=== PATIENT | female | born 1960 | race Caucasian/White ===

== ENCOUNTER 2020-08-14 14:31 | Emergency (ER) | payer OTHER ==
[~2020-08-14] VITALS: Ht 157.5 cm; Wt 59.1 kg
[2020-08-14 16:15] LABS: APPEARANCE,URINE CLEAR (CLEAR); BILIRUBIN,URINE NEGATIVE (NEGATIVE); GLUCOSE, URINE (UA) NEGATIVE (NEGATIVE); KETONES,URINE NEGATIVE (NEGATIVE); LEUKOCYTE ESTERASE ,URINE TRACE (NEGATIVE); NITRATE,URINE NEGATIVE (NEGATIVE); OCCULT BLOOD,URINE LARGE (NEGATIVE); PROTEIN,URINE NEGATIVE (NEGATIVE); UROBILINOGEN,URINE 0.2 mg/dL (<=1.0)
[2020-08-14 16:18] LABS: BACTERIA,URINE Rare /HPF (None Seen); SQUAMOUS EPITHELIAL CELL,UR Few /LPF (None Seen)
[2020-08-14 16:27] LABS: BASOPHILS % (AUTO) 0.9 % (0.0-2.0); HEMATOCRIT 32.2 % (36-46); HEMOGLOBIN 10.8 g/dL (12.0-16.0); LYMPHOCYTES # (AUTO) 1.8 K/uL (1.0-4.8); LYMPHOCYTES % (AUTO) 38.8 % (22.0-44.0); MEAN CORPUSCULAR HEMOGLOBIN 32.2 pg (26.0-34.0); MEAN CORPUSCULAR HGB CONC 33.6 G/dL (31.0-37.0); MEAN CORPUSCULAR VOLUME 96 fL (80-100); MONOCYTES # (AUTO) 0.5 K/uL (0.1-1.0); NEUTROPHILS # (AUTO) 2.2 K/uL (1.8-7.7); NEUTROPHILS % (AUTO) 47.3 % (40.0-70.0); PLATELET COUNT (AUTO) 242 K/uL (150-450); RED BLOOD CELL COUNT(AUTO) 3.36 MIL/uL (4.00-5.20); RED CELL DISTRIBUTION WIDTH 13.3 % (11.5-14.5)
[2020-08-14 16:38] LABS: ANION GAP 9 mmol/L (8-16); CALCIUM, TOTAL 8.6 mg/dL (8.8-10.5); CARBON DIOXIDE 28 mmol/L (22-29); CHLORIDE 105 mmol/L (98-107); CREATININE 0.47 mg/dL (0.60-1.30); GLOMERULAR FILTR. RATE CALC > 60 mL/min (>60); GLUCOSE,RANDOM 96 mg/dL (70-110); POTASSIUM 4.3 mmol/L (3.5-5.1); SODIUM SERUM 142 mmol/L (136-145); UREA NITROGEN, BLOOD 15 mg/dL (7-18)
[2020-08-14 17:05] LABS: ALANINE AMINOTRANSFERASE 22 U/L (12-78); ALBUMIN 3.7 g/dL (3.4-5.0); ALKALINE PHOSPHATASE 64 U/L (46-116); ASPARTATE AMINOTRANSFERASE 12 U/L (15-37); BILIRUBIN,TOTAL 0.2 mg/dL (0.1-1.0); CREATINE KINASE, TOTAL ONLY 79 U/L (26-192); TOTAL PROTEIN, SERUM 7.2 g/dL (6.4-8.2)
[2020-08-14 18:07] VITALS: BP 126/68
== END 2020-08-14 18:09 | disposition home or self-care (01) ==
LOC: EMS 14:31
DX: R20.0 Anesthesia of skin (principal); M79.601 Pain in right arm; M79.602 Pain in left arm; M79.604 Pain in right leg; M79.605 Pain in left leg
CPT/HCPCS: 71045; 80053; 81001; 82550; 84484; 85025; 93005; 99285; 36415-L1; 36415-TC

== ENCOUNTER 2021-02-20 14:22 | Emergency (ER) | payer OTHER ==
[~2021-02-20] VITALS: Ht 165.1 cm; Wt 53.2 kg
[2021-02-20] MEDS ORDERED: ACETAMINOPHEN 325 MG TABLET PO ONE (18:15)
[2021-02-20 18:23] LABS: BASOPHILS % (AUTO) 0.9 % (0.0-2.0); EOSINOPHILS % (AUTO) 2.6 % (1.0-6.0); HEMATOCRIT 33.3 % (36-46); HEMOGLOBIN 11.1 g/dL (12.0-16.0); LYMPHOCYTES % (AUTO) 37.5 % (22.0-44.0); MEAN CORPUSCULAR HEMOGLOBIN 31.9 pg (26.0-34.0); MEAN CORPUSCULAR HGB CONC 33.4 G/dL (31.0-37.0); MEAN CORPUSCULAR VOLUME 95 fL (80-100); MONOCYTES # (AUTO) 0.6 K/uL (0.1-1.0); NEUTROPHILS # (AUTO) 2.5 K/uL (1.8-7.7); PLATELET COUNT (AUTO) 249 K/uL (150-450); RED BLOOD CELL COUNT(AUTO) 3.49 MIL/uL (4.00-5.20); RED CELL DISTRIBUTION WIDTH 14.4 % (11.5-14.5)
[2021-02-20 18:33] LABS: ANION GAP 9 mmol/L (8-16); CALCIUM, TOTAL 8.8 mg/dL (8.8-10.5); CARBON DIOXIDE 28 mmol/L (22-29); CHLORIDE 106 mmol/L (98-107); CREATININE 0.55 mg/dL (0.60-1.30); GLOMERULAR FILTR. RATE CALC > 60 mL/min (>60); GLUCOSE,RANDOM 101 mg/dL (70-110); POTASSIUM 3.9 mmol/L (3.5-5.1); SODIUM SERUM 143 mmol/L (136-145); UREA NITROGEN, BLOOD 22 mg/dL (7-18)
[2021-02-20 18:58] LABS: ALANINE AMINOTRANSFERASE 28 U/L (12-78); ALBUMIN 3.8 g/dL (3.4-5.0); ALKALINE PHOSPHATASE 65 U/L (46-116); ASPARTATE AMINOTRANSFERASE 21 U/L (15-37); BILIRUBIN,TOTAL 0.3 mg/dL (0.1-1.0); CREATINE KINASE, TOTAL ONLY 100 U/L (26-192); TOTAL PROTEIN, SERUM 7.4 g/dL (6.4-8.2)
[2021-02-20 19:14] LABS: APPEARANCE,URINE CLEAR (CLEAR); BILIRUBIN,URINE NEGATIVE (NEGATIVE); GLUCOSE, URINE (UA) NEGATIVE (NEGATIVE); KETONES,URINE NEGATIVE (NEGATIVE); LEUKOCYTE ESTERASE ,URINE SMALL (NEGATIVE); NITRATE,URINE NEGATIVE (NEGATIVE); OCCULT BLOOD,URINE LARGE (NEGATIVE); PH,URINE 6.5 (5.0-8.0); PROTEIN,URINE TRACE (NEGATIVE); UROBILINOGEN,URINE 0.2 mg/dL (<=1.0)
[2021-02-20 19:20] LABS: RBC,URINE 51-100 /HPF (0-2)
[2021-02-20 19:22] LABS: BACTERIA,URINE Few /HPF (None Seen); SQUAMOUS EPITHELIAL CELL,UR Few /LPF (None Seen)
[2021-02-20 19:55] VITALS: BP 118/71
== END 2021-02-20 19:30 | disposition home or self-care (01) ==
LOC: EMS 14:26
DX: G47.00 Insomnia, unspecified (principal); R31.9 Hematuria, unspecified
CPT/HCPCS: 71045; 80053; 81001; 82550; 85025; 99284; 36415-L1; 36415-TC

== ENCOUNTER 2021-10-10 07:44 | Inpatient (IN) | payer OTHER ==
[2021-10-10] VITALS (16 sets, daily range): BP systolic 110–134; BP diastolic 64–80
[~2021-10-10] VITALS: Ht 160 cm; Wt 55.9 kg
[2021-10-10] MEDS ORDERED: NITROGLYCERIN 0.4 MG SUBLINGUAL TABLET #25 SL ONE (08:00)
[2021-10-10] MEDS ORDERED: ASPIRIN 81 MG CHEWABLE TABLET PO ONE (08:00)
[2021-10-10 08:05] LABS: BASOPHILS % (AUTO) 0.5 % (0.0-2.0); HEMATOCRIT 37.5 % (36-46); HEMOGLOBIN 13.1 g/dL (12.0-16.0); LYMPHOCYTES # (AUTO) 2.2 K/uL (1.0-4.8); LYMPHOCYTES % (AUTO) 29.9 % (22.0-44.0); MEAN CORPUSCULAR HEMOGLOBIN 33.4 pg (26.0-34.0); MEAN CORPUSCULAR VOLUME 95 fL (80-100); MONOCYTES # (AUTO) 0.9 K/uL (0.1-1.0); MONOCYTES % (AUTO) 12.4 % (2.0-9.0); NEUTROPHILS # (AUTO) 4.1 K/uL (1.8-7.7); NEUTROPHILS % (AUTO) 56.2 % (40.0-70.0); PLATELET COUNT (AUTO) 149 K/uL (150-450); RED BLOOD CELL COUNT(AUTO) 3.93 MIL/uL (4.00-5.20); RED CELL DISTRIBUTION WIDTH 13.9 % (11.5-14.5)
[2021-10-10 08:14] LABS: ANION GAP 7 mmol/L (8-16); CALCIUM, TOTAL 9.2 mg/dL (8.8-10.5); CARBON DIOXIDE 32 mmol/L (22-29); CHLORIDE 100 mmol/L (98-107); CREATININE 0.79 mg/dL (0.60-1.30); GLOMERULAR FILTR. RATE CALC > 60 mL/min (>60); GLUCOSE,RANDOM 118 mg/dL (70-110); POTASSIUM 4.5 mmol/L (3.5-5.1); SODIUM SERUM 139 mmol/L (136-145); UREA NITROGEN, BLOOD 21 mg/dL (7-18)
[2021-10-10] MEDS ORDERED: RINGERS SOLUTION,LACTATED 500 ML IV ONE (08:15)
[2021-10-10] MEDS ORDERED: FentaNYL CITRATE PF 100 MCG/2 ML VIAL IVP ONE (08:15)
[2021-10-10] MEDS ORDERED: IOHEXOL 300 MG/ML 150 ML VIAL ONE (08:44)
[2021-10-10] MEDS ORDERED: IOHEXOL 300 MG/ML 100 ML VIAL ONE (08:44)
[2021-10-10] MEDS ORDERED: LIDOCAINE/PF 1% 30 ML VIAL ONE (08:44)
[2021-10-10] MEDS ORDERED: SODIUM BICARBONATE 50 MEQ/50 ML VIAL ONE (08:44)
[2021-10-10] MEDS ORDERED: HEPARIN SODIUM 1000 UNITS/NS 1,000 ML ONE (08:44)
[2021-10-10] MEDS ORDERED: IOHEXOL 300 MG/ML 50 ML VIAL ONE ×2 (08:44→09:52)
[2021-10-10] MEDS ORDERED: HEPARIN SODIUM,PORCINE 5,000 UNITS/ML VIAL IVP ONE ×2 (08:45→09:45)
[2021-10-10] MEDS ORDERED: TICAGRELOR 90 MG TABLET PO ONE (08:45)
[2021-10-10] MEDS ORDERED: ATORVASTATIN CALCIUM 40 MG TABLET PO ONE (08:45)
[2021-10-10] MEDS ORDERED: FentaNYL CITRATE PF 100 MCG/2 ML VIAL ONE (09:24)
[2021-10-10] MEDS ORDERED: MIDAZOLAM HCL 2 MG/2 ML VIAL ONE (09:24)
[2021-10-10] MEDS ORDERED: LIDOCAINE 1% 30 ML/SOD BICARB 8.4% 4 ML SQ ONE (09:30)
[2021-10-10] MEDS ORDERED: SODIUM CHLORIDE 0.9% 500 ML IV ONE (09:30)
[2021-10-10] MEDS ORDERED: IOHEXOL 300 MG/ML 150 ML VIAL ICOR ONE (09:30)
[2021-10-10] MEDS ORDERED: NITROGLYCERIN 50 MG/D5% WATER 250 ML ONE (09:43)
[2021-10-10] MEDS ORDERED: VERAPAMIL HCL 2.5 MG/ML 2 ML VIAL ONE (09:43)
[2021-10-10] MEDS ORDERED: ACETAMINOPHEN 325 MG TABLET PO PRN ×2 (09:45→16:00)
[2021-10-10] MEDS ORDERED: VERAPAMIL HCL 2.5 MG/ML 2 ML VIAL ICOR ONE (10:00)
[2021-10-10] MEDS ORDERED: NITROGLYCERIN/D5W 50 MG/250 ML IV BOTTLE ICOR ONE (10:00)
[2021-10-10] MEDS: ISOSORBIDE MONONITRATE 30 MG ER TABLET PO SCH (11:00)
[2021-10-10] MEDS ORDERED: HYDROCODONE/ACETAMINOPHEN 5-325 MG TABLET PO PRN (16:00)
[2021-10-10] MEDS: HYDROCODONE/ACETAMINOPHEN 5-325 MG TABLET PO PRN (16:27)
[2021-10-10] MEDS ORDERED: PNEUMOCOCCAL VACCINE POLYVALENT 0.5 ML VIAL [PPSV23] IM. ONE (19:00)
[2021-10-10] MEDS: ATORVASTATIN CALCIUM 40 MG TABLET PO SCH (21:29)
[2021-10-10] MEDS: DOCUSATE SODIUM 100 MG CAPSULE PO SCH (21:29)
[2021-10-10] MEDS: ETHYL ALCOHOL 62% ANTISEPTIC NASAL SANITIZER 0.6 ML AMPUL NASAL SCH (21:29)
[2021-10-10] MEDS: TICAGRELOR 90 MG TABLET PO SCH (21:30)
[2021-10-10] MEDS: FAMOTIDINE 20 MG TABLET PO SCH (21:30)
[2021-10-11] VITALS (12 sets, daily range): BP systolic 100–124; BP diastolic 58–72
[2021-10-11 06:06] LABS: BASOPHILS % (AUTO) 0.6 % (0.0-2.0); EOSINOPHILS % (AUTO) 2.1 % (1.0-6.0); HEMATOCRIT 30.7 % (36-46); HEMOGLOBIN 10.9 g/dL (12.0-16.0); MEAN CORPUSCULAR HEMOGLOBIN 33.7 pg (26.0-34.0); MEAN CORPUSCULAR HGB CONC 35.5 G/dL (31.0-37.0); MEAN CORPUSCULAR VOLUME 95 fL (80-100); MONOCYTES # (AUTO) 0.8 K/uL (0.1-1.0); MONOCYTES % (AUTO) 13.7 % (2.0-9.0); NEUTROPHILS # (AUTO) 2.9 K/uL (1.8-7.7); NEUTROPHILS % (AUTO) 49.6 % (40.0-70.0); PLATELET COUNT (AUTO) 107 K/uL (150-450); RED BLOOD CELL COUNT(AUTO) 3.24 MIL/uL (4.00-5.20); RED CELL DISTRIBUTION WIDTH 13.9 % (11.5-14.5)
[2021-10-11 06:14] LABS: ALANINE AMINOTRANSFERASE 26 U/L (12-78); ALBUMIN 3.3 g/dL (3.4-5.0); ALKALINE PHOSPHATASE 75 U/L (46-116); ANION GAP 5 mmol/L (8-16); ASPARTATE AMINOTRANSFERASE 17 U/L (15-37); BILIRUBIN,TOTAL 0.5 mg/dL (0.1-1.0); CALCIUM, TOTAL 8.5 mg/dL (8.8-10.5); CARBON DIOXIDE 31 mmol/L (22-29); CHLORIDE 103 mmol/L (98-107); CHOL/HDL RATIO 4.4 (3.9-5.7); CHOLESTEROL 145 mg/dL (131-200); CREATININE 0.54 mg/dL (0.60-1.30); GLUCOSE,RANDOM 105 mg/dL (70-110); HDL CHOLESTEROL 33 mg/dL (40-60); LDL CHOL (CALC.) 87 mg/dL (0-130); POTASSIUM 4.2 mmol/L (3.5-5.1); SODIUM SERUM 139 mmol/L (136-145); TOTAL PROTEIN, SERUM 6.6 g/dL (6.4-8.2); TRIGLYCERIDES 124 mg/dL (15-150); UREA NITROGEN, BLOOD 21 mg/dL (7-18)
[2021-10-11 06:15] LABS: GLOMERULAR FILTR. RATE CALC > 60 mL/min (>60)
[2021-10-11] MEDS: HYDROCODONE/ACETAMINOPHEN 5-325 MG TABLET PO PRN ×2 (06:46→21:12)
[2021-10-11] MEDS: ISOSORBIDE MONONITRATE 30 MG ER TABLET PO SCH (09:42)
[2021-10-11] MEDS: TICAGRELOR 90 MG TABLET PO SCH ×2 (09:42→21:12)
[2021-10-11] MEDS: ASPIRIN 81 MG CHEWABLE TABLET PO SCH (09:42)
[2021-10-11] MEDS: FAMOTIDINE 20 MG TABLET PO SCH ×2 (09:42→21:12)
[2021-10-11] MEDS: METOPROLOL SUCCINATE 25 MG ER TABLET PO SCH (09:43)
[2021-10-11] MEDS: ETHYL ALCOHOL 62% ANTISEPTIC NASAL SANITIZER 0.6 ML AMPUL NASAL SCH ×2 (09:43→21:11)
[2021-10-11] MEDS: DOCUSATE SODIUM 100 MG CAPSULE PO SCH ×2 (09:43→21:12)
[2021-10-11] MEDS: MORPHINE SULFATE 2 MG/ML SYRINGE IVP PRN ×2 (12:11→16:18)
[2021-10-11 13:54] LABS: HEMATOCRIT 31.1 % (36-46); HEMOGLOBIN 10.8 g/dL (12.0-16.0)
[2021-10-11 19:46] LABS: HEMATOCRIT 29.5 % (36-46); HEMOGLOBIN 10.2 g/dL (12.0-16.0)
[2021-10-11] MEDS: ATORVASTATIN CALCIUM 40 MG TABLET PO SCH (21:12)
[2021-10-12] VITALS (14 sets, daily range): BP systolic 108–126; BP diastolic 62–73
[2021-10-12] MEDS: ONDANSETRON HCL 4 MG/2 ML VIAL IVP PRN ×4 (01:00→22:41)
[2021-10-12 05:57] LABS: BASOPHILS % (AUTO) 0.7 % (0.0-2.0); EOSINOPHILS % (AUTO) 0.8 % (1.0-6.0); HEMOGLOBIN 11.1 g/dL (12.0-16.0); LYMPHOCYTES # (AUTO) 1.5 K/uL (1.0-4.8); LYMPHOCYTES % (AUTO) 23.1 % (22.0-44.0); MEAN CORPUSCULAR HEMOGLOBIN 33.8 pg (26.0-34.0); MEAN CORPUSCULAR HGB CONC 35.8 G/dL (31.0-37.0); MEAN CORPUSCULAR VOLUME 95 fL (80-100); MONOCYTES # (AUTO) 0.6 K/uL (0.1-1.0); MONOCYTES % (AUTO) 9.9 % (2.0-9.0); NEUTROPHILS # (AUTO) 4.2 K/uL (1.8-7.7); NEUTROPHILS % (AUTO) 65.5 % (40.0-70.0); PLATELET COUNT (AUTO) 106 K/uL (150-450); RED BLOOD CELL COUNT(AUTO) 3.28 MIL/uL (4.00-5.20); RED CELL DISTRIBUTION WIDTH 13.7 % (11.5-14.5)
[2021-10-12 06:14] LABS: ALANINE AMINOTRANSFERASE 23 U/L (12-78); ALBUMIN 3.4 g/dL (3.4-5.0); ALKALINE PHOSPHATASE 79 U/L (46-116); ANION GAP 7 mmol/L (8-16); ASPARTATE AMINOTRANSFERASE 16 U/L (15-37); BILIRUBIN,TOTAL 0.6 mg/dL (0.1-1.0); CALCIUM, TOTAL 8.6 mg/dL (8.8-10.5); CARBON DIOXIDE 30 mmol/L (22-29); CHLORIDE 102 mmol/L (98-107); CREATININE 0.52 mg/dL (0.60-1.30); GLOMERULAR FILTR. RATE CALC > 60 mL/min (>60); GLUCOSE,RANDOM 107 mg/dL (70-110); SODIUM SERUM 139 mmol/L (136-145); TOTAL PROTEIN, SERUM 6.7 g/dL (6.4-8.2); UREA NITROGEN, BLOOD 13 mg/dL (7-18)
[2021-10-12] MEDS: ASPIRIN 81 MG CHEWABLE TABLET PO SCH (07:50)
[2021-10-12] MEDS: ETHYL ALCOHOL 62% ANTISEPTIC NASAL SANITIZER 0.6 ML AMPUL NASAL SCH ×2 (07:50→20:46)
[2021-10-12] MEDS: METOPROLOL SUCCINATE 25 MG ER TABLET PO SCH (07:50)
[2021-10-12] MEDS: DOCUSATE SODIUM 100 MG CAPSULE PO SCH ×2 (07:51→20:48)
[2021-10-12] MEDS: ISOSORBIDE MONONITRATE 30 MG ER TABLET PO SCH (07:51)
[2021-10-12] MEDS: FAMOTIDINE 20 MG TABLET PO SCH ×2 (07:51→20:46)
[2021-10-12] MEDS: TICAGRELOR 90 MG TABLET PO SCH ×2 (07:51→20:46)
[2021-10-12] MEDS: ATORVASTATIN CALCIUM 40 MG TABLET PO SCH (20:46)
[2021-10-13 01:00] VITALS: BP 116/67
[2021-10-13] MEDS: HYDROCODONE/ACETAMINOPHEN 5-325 MG TABLET PO PRN (03:56)
[2021-10-13 04:00] VITALS: BP 120/74
[2021-10-13] MEDS: ONDANSETRON HCL 4 MG/2 ML VIAL IVP PRN (04:45)
[2021-10-13 05:00] VITALS: BP 120/74
[2021-10-13 06:01] LABS: BASOPHILS % (AUTO) 0.2 % (0.0-2.0); EOSINOPHILS % (AUTO) 1.4 % (1.0-6.0); HEMATOCRIT 31.6 % (36-46); LYMPHOCYTES # (AUTO) 1.6 K/uL (1.0-4.8); LYMPHOCYTES % (AUTO) 27.4 % (22.0-44.0); MEAN CORPUSCULAR HEMOGLOBIN 33.3 pg (26.0-34.0); MEAN CORPUSCULAR HGB CONC 34.9 G/dL (31.0-37.0); MEAN CORPUSCULAR VOLUME 96 fL (80-100); MONOCYTES # (AUTO) 0.8 K/uL (0.1-1.0); MONOCYTES % (AUTO) 13.8 % (2.0-9.0); NEUTROPHILS # (AUTO) 3.4 K/uL (1.8-7.7); NEUTROPHILS % (AUTO) 57.2 % (40.0-70.0); PLATELET COUNT (AUTO) 130 K/uL (150-450)
[2021-10-13 06:21] LABS: ALANINE AMINOTRANSFERASE 30 U/L (12-78); ALBUMIN 3.5 g/dL (3.4-5.0); ALKALINE PHOSPHATASE 87 U/L (46-116); ANION GAP 7 mmol/L (8-16); ASPARTATE AMINOTRANSFERASE 20 U/L (15-37); BILIRUBIN,TOTAL 0.7 mg/dL (0.1-1.0); CALCIUM, TOTAL 8.9 mg/dL (8.8-10.5); CARBON DIOXIDE 29 mmol/L (22-29); CHLORIDE 101 mmol/L (98-107); CREATININE 0.62 mg/dL (0.60-1.30); GLUCOSE,RANDOM 109 mg/dL (70-110); POTASSIUM 4.3 mmol/L (3.5-5.1); SODIUM SERUM 137 mmol/L (136-145); TOTAL PROTEIN, SERUM 7.1 g/dL (6.4-8.2); UREA NITROGEN, BLOOD 19 mg/dL (7-18)
[2021-10-13 06:24] LABS: GLOMERULAR FILTR. RATE CALC > 60 mL/min (>60)
[2021-10-13 08:17] VITALS: BP 120/70
[2021-10-13] MEDS: METOPROLOL SUCCINATE 25 MG ER TABLET PO SCH (09:10)
[2021-10-13] MEDS: FAMOTIDINE 20 MG TABLET PO SCH (09:11)
[2021-10-13] MEDS: DOCUSATE SODIUM 100 MG CAPSULE PO SCH (09:11)
[2021-10-13] MEDS: ISOSORBIDE MONONITRATE 30 MG ER TABLET PO SCH (09:11)
[2021-10-13] MEDS: ASPIRIN 81 MG CHEWABLE TABLET PO SCH (09:11)
[2021-10-13] MEDS: TICAGRELOR 90 MG TABLET PO SCH (09:15)
[2021-10-13] MEDS: ETHYL ALCOHOL 62% ANTISEPTIC NASAL SANITIZER 0.6 ML AMPUL NASAL SCH (09:15)
[2021-10-13] MEDS ORDERED: ATOR40TA28 PO (10:06)
[2021-10-13] MEDS ORDERED: METO25XL PO (10:06)
[2021-10-13] MEDS ORDERED: ASPI-1450 PO (10:07)
[2021-10-13] MEDS ORDERED: TICA90TA PO (10:08)
[2021-10-13 12:09] VITALS: BP 122/67
== END 2021-10-13 13:20 | disposition home or self-care (01) | DRG 174 ==
LOC: EMS 07:44 → ICU 09:42 → 5N 10-12 17:35
PROVIDERS: ADMIT Internal Medicine; ATTEND Internal Medicine
PROC: 027034Z Dilation of Coronary Artery, One Artery with Drug-eluting Intraluminal Device, Percutaneous Approach (ICD-10-PCS; principal; 2021-10-10)
PROC: 4A023N7 Measurement of Cardiac Sampling and Pressure, Left Heart, Percutaneous Approach (ICD-10-PCS; 2021-10-10)
PROC: B2111ZZ Fluoroscopy of Multiple Coronary Arteries using Low Osmolar Contrast (ICD-10-PCS; 2021-10-10)
PROC: B2151ZZ Fluoroscopy of Left Heart using Low Osmolar Contrast (ICD-10-PCS; 2021-10-10)
PROC: B41F1ZZ Fluoroscopy of Right Lower Extremity Arteries using Low Osmolar Contrast (ICD-10-PCS; 2021-10-10)
DX: I21.4 Non-ST elevation (NSTEMI) myocardial infarction (principal); E78.00 Pure hypercholesterolemia, unspecified; E78.5 Hyperlipidemia, unspecified; K21.9 Gastro-esophageal reflux disease without esophagitis; I25.10 Atherosclerotic heart disease of native coronary artery without angina pectoris; Z98.61 Coronary angioplasty status; Z90.710 Acquired absence of both cervix and uterus; Z79.899 Other long term (current) drug therapy
CPT/HCPCS: 71045; 76705; 80048; 80053; 80061; 83036; 84484; 85014; 85018; 85025; 85730; 87081; 92920; 92928; 93005; 93926; 97163; 99285; G0378; J1644; J2250; J2270; J2405; J3010; J3490; J7120; Q9967; 36415-L1; 36415-TC; Z7610

== ENCOUNTER 2021-12-08 10:52 | Emergency (ER) | payer OTHER ==
[~2021-12-08] VITALS: Ht 160 cm; Wt 54.5 kg
[~2021-12-08 10:52] MED LIST: ASPI-1450 PO; ATOR40TA28 PO; METO25XL PO; TICA90TA PO
[2021-12-08 11:43] LABS: BASOPHILS % (AUTO) 0.8 % (0.0-2.0); EOSINOPHILS % (AUTO) 2.1 % (1.0-6.0); HEMATOCRIT 31.1 % (36-46); HEMOGLOBIN 10.7 g/dL (12.0-16.0); LYMPHOCYTES # (AUTO) 1.8 K/uL (1.0-4.8); LYMPHOCYTES % (AUTO) 35.8 % (22.0-44.0); MEAN CORPUSCULAR HEMOGLOBIN 34.4 pg (26.0-34.0); MEAN CORPUSCULAR HGB CONC 34.5 G/dL (31.0-37.0); MEAN CORPUSCULAR VOLUME 100 fL (80-100); MONOCYTES # (AUTO) 0.6 K/uL (0.1-1.0); MONOCYTES % (AUTO) 11.5 % (2.0-9.0); NEUTROPHILS # (AUTO) 2.5 K/uL (1.8-7.7); NEUTROPHILS % (AUTO) 49.8 % (40.0-70.0); PLATELET COUNT (AUTO) 216 K/uL (150-450); RED BLOOD CELL COUNT(AUTO) 3.12 MIL/uL (4.00-5.20); RED CELL DISTRIBUTION WIDTH 13.7 % (11.5-14.5)
[2021-12-08] MEDS ORDERED: ESCI5SOL2 PO (11:44)
[2021-12-08 12:04] LABS: ANION GAP 5 mmol/L (8-16); CALCIUM, TOTAL 8.8 mg/dL (8.8-10.5); CARBON DIOXIDE 30 mmol/L (22-29); CHLORIDE 103 mmol/L (98-107); GLOMERULAR FILTR. RATE CALC > 60 mL/min (>60); GLUCOSE,RANDOM 90 mg/dL (70-110); SODIUM SERUM 138 mmol/L (136-145); UREA NITROGEN, BLOOD 13 mg/dL (7-18)
[2021-12-08 12:05] LABS: B-TYPE NATRIURETIC PEPTIDE 29 pg/mL (0-100)
[2021-12-08 12:09] LABS: ALANINE AMINOTRANSFERASE 51 U/L (12-78); ALBUMIN 4.1 g/dL (3.4-5.0); ALKALINE PHOSPHATASE 69 U/L (46-116); ASPARTATE AMINOTRANSFERASE 26 U/L (15-37); BILIRUBIN,TOTAL 0.6 mg/dL (0.1-1.0); TOTAL PROTEIN, SERUM 7.3 g/dL (6.4-8.2)
[2021-12-08 12:23] LABS: INR 1.1 (0.9-1.1); PROTHROMBIN TIME 11.2 SEC (9.4-11.6)
[2021-12-08 13:22] LABS: COVID AG,FIA SOURCE NASAL SWAB
[2021-12-08 14:29] VITALS: BP 135/69
== END 2021-12-08 14:35 | disposition home or self-care (01) ==
LOC: EMS 10:52
DX: S60.221A Contusion of right hand, initial encounter (principal); S80.12XA Contusion of left lower leg, initial encounter; E78.00 Pure hypercholesterolemia, unspecified; Z90.710 Acquired absence of both cervix and uterus; Z20.822 Contact with and (suspected) exposure to COVID-19; X58.XXXA Exposure to other specified factors, initial encounter; Y93.89 Activity, other specified; Y92.89 Other specified places as the place of occurrence of the external cause; Y99.8 Other external cause status
CPT/HCPCS: 99285; 71045; 87426; 80053; 83880; 84484; 85025; 85610; 85730; 36415; 93005; G0480

== ENCOUNTER 2022-08-29 13:55 | Emergency (ER) | payer OTHER ==
[~2022-08-29] VITALS: Ht 162.6 cm; Wt 59.1 kg
[~2022-08-29 13:55] MED LIST changes: +ESCI5SOL2 PO
[2022-08-29] MEDS ORDERED: NIFE-141 PO (14:07)
[2022-08-29 14:23] LABS: COVID AG,FIA SOURCE NASAL SWAB
[2022-08-29 14:53] VITALS: BP 143/43
[2022-08-29] MEDS ORDERED: GuaiFENesin/D-METHORPHAN [SUGAR-FREE] 200-20MG/10 ML SYRUP UDCUP PO ONE (15:00)
[2022-08-29] MEDS ORDERED: IBUPROFEN 200 MG TABLET PO ONE (15:00)
[2022-08-29] MEDS ORDERED: HYDROCODONE/ACETAMINOPHEN 5-325 MG TABLET PO ONE (15:00)
[2022-08-29 15:16] LABS: INFLUENZA TYPE A NEGATIVE FOR TYPE A (NEGATIVE); INFLUENZA TYPE B NEGATIVE FOR TYPE B (NEGATIVE)
[2022-08-29 15:18] LABS: RAPID GROUP A STREP NEGATIVE (NEGATIVE)
[2022-08-29] MEDS ORDERED: BENZ-227 PO (15:27)
[2022-08-29] MEDS ORDERED: ACET-2080 PO (15:27)
[2022-08-29] MEDS ORDERED: GUAIFDM PO (15:27)
[2022-08-29] MEDS ORDERED: IBUP-45 PO (15:27)
== END 2022-08-29 15:36 | disposition home or self-care (01) ==
LOC: EMS 13:56
DX: J20.9 Acute bronchitis, unspecified (principal); J06.9 Acute upper respiratory infection, unspecified; F32.A Depression, unspecified; E78.00 Pure hypercholesterolemia, unspecified; I10 Essential (primary) hypertension; Z90.710 Acquired absence of both cervix and uterus; Z98.890 Other specified postprocedural states; Z20.822 Contact with and (suspected) exposure to COVID-19
CPT/HCPCS: 87430; 87804; 99284; Z7502; Z7610

== ENCOUNTER 2025-03-02 10:32 | Emergency (ER) | payer OTHER ==
[~2025-03-02] VITALS: Ht 160 cm; Wt 54.5 kg
[~2025-03-02 10:32] MED LIST changes: +ACET-2080 PO; +BENZ-227 PO; +GUAIFDM PO; +IBUP-45 PO; -METO25XL PO; +NIFE-141 PO
[2025-03-02 10:38] VITALS: TEMP 98.1
[2025-03-02] MEDS ORDERED: METO25XL PO (10:41)
[2025-03-02] MEDS ORDERED: EZET10TA57 PO (10:41)
[2025-03-02] MEDS ORDERED: AMLO2.5T96 PO (10:41)
[2025-03-02] MEDS: ACETAMINOPHEN 325 MG TABLET PO ONE (11:58)
[2025-03-02] MEDS: KETOROLAC TROMETHAMINE 30 MG/ML VIAL IM ONE (11:59)
[2025-03-02] MEDS ORDERED: VALA100026 PO (12:37)
[2025-03-02] MEDS ORDERED: IBUP-1506 PO (12:37)
[2025-03-02 13:21] VITALS: BP 119/77; PULSE 80; RESP 20; O2SAT 100
== END 2025-03-02 13:26 | disposition home or self-care (01) ==
LOC: EMS 10:32
DX: B02.9 Zoster without complications (principal); E78.00 Pure hypercholesterolemia, unspecified; R07.81 Pleurodynia; F32.A Depression, unspecified; I10 Essential (primary) hypertension; K21.9 Gastro-esophageal reflux disease without esophagitis; Z98.890 Other specified postprocedural states; Z79.82 Long term (current) use of aspirin; Z79.899 Other long term (current) drug therapy; Z90.710 Acquired absence of both cervix and uterus
CPT/HCPCS: 99283; 96372; J1885